=== PATIENT | female | born 1970 | race Caucasian/White ===

== ENCOUNTER → 2018-08-11 | Outpatient (REF) | payer BC ==
[2018-08-15 14:17] LABS: HPV HYBRID CAPTURE II Negative (Negative)
== END ==
LOC: M LAB REF 16:04
PROVIDERS: ATTEND Family Medicine
DX: Z12.4 Encounter for screening for malignant neoplasm of cervix (principal); Z11.51 Encounter for screening for human papillomavirus (HPV); R87.610 Atypical squamous cells of undetermined significance on cytologic smear of cervix (ASC-US)
CPT/HCPCS: 87624; G0123

== ENCOUNTER 2018-09-11 10:10 | Day surgery (SDC) | payer BC ==
[~2018-09-11] VITALS: Ht 165.1 cm; Wt 67.6 kg
[~2018-09-11 10:10] MED LIST: BLAC20TA PO; CHASTE TREE; GLUC1CAP10 PO; LIDOCAINE 2% INJ 100 MG/5 ML SDV (FOR ANES.) As Ordered ONE; NS 1,000 ML IV ONE; PROPOFOL 200 MG/20 ML VIAL As Ordered ONE; [UNRECOGNIZED DRUG - CODE] PO
--- NOTE | 2018-09-11 11:38 | ROOR ---
Patient Name: Gayle Richey Procedure Date: 09/11/2018 11:20 AM Date of : 1970 Age: 48 Room: [facility] Gender: Female Note Status: Finalized Procedure: Colonoscopy Indications: Screening for colorectal malignant neoplasm Providers: Isaías Palma Jr, MD Referring MD: Sarika Mendes DO Requesting Provider: Medicines: Propofol per Anesthesia Complications: No immediate complications. Procedure: Pre-Anesthesia Assessment: - Prior to the procedure, a History and Physical was performed, and patient medications and allergies were reviewed. The patient is competent. The risks and benefits of the procedure and the sedation options and risks were discussed with the patient. All questions were answered and informed consent was obtained. Patient identification and proposed procedure were verified by the physician and the nurse in the pre-procedure area and in the procedure room. Mental Status Examination: alert and oriented. Airway Examination: normal oropharyngeal airway and neck mobility. Respiratory Examination: clear to auscultation. CV Examination: normal. ASA Grade Assessment: II - A patient with mild systemic disease. After reviewing the risks and benefits, the patient was deemed in satisfactory condition to undergo the procedure. The anesthesia plan was to use moderate sedation / analgesia (conscious sedation). Immediately prior to administration of medications, the patient was re-assessed for adequacy to receive sedatives. The heart rate, respiratory rate, oxygen saturations, blood pressure, adequacy of pulmonary ventilation, and response to care were monitored throughout the procedure. The physical status of the patient was re-assessed after the procedure. The Colonoscope was introduced through the anus and advanced to the cecum, identified by appendiceal orifice and ileocecal valve. The colonoscopy was performed without difficulty. The patient tolerated the procedure well. The quality of the bowel preparation was adequate. Findings: The rectum, recto-sigmoid colon, sigmoid colon, descending colon, ascending colon, cecum, appendiceal orifice and ileocecal valve appeared normal. A small polyp was found in the transverse colon. The polyp was removed with a cold snare. Resection and retrieval were complete. Impression: - The rectum, recto-sigmoid colon, sigmoid colon, descending colon, ascending colon, cecum, appendiceal orifice and ileocecal valve are normal. - One small polyp in the transverse colon, removed with a cold snare. Resected and retrieved. Recommendation: - Repeat colonoscopy in 5-10 years for surveillance based on pathology results. Isaías Palma MD Isaías Palma Jr, MD 09/11/2018 11:38:30 AM This report has been signed electronically. Number of Addenda: 0 Note Initiated On: 09/11/2018 11:20 AM Estimated Blood Loss: Estimated blood loss: none.
[2018-09-11 12:00] VITALS: BP 117/71
== END 2018-09-11 12:10 | disposition home or self-care (01) ==
LOC: M OPP 10:10
PROVIDERS: ATTEND Surgery
DX: Z12.11 Encounter for screening for malignant neoplasm of colon (principal); D12.3 Benign neoplasm of transverse colon; Z91.048 Other nonmedicinal substance allergy status

== ENCOUNTER 2023-09-26 09:40 | Day surgery (SDC) | payer BC ==
[~2023-09-26] VITALS: Ht 165.1 cm; Wt 68.3 kg
[~2023-09-26 09:40] MED LIST changes: +CATALYN PO; +IBUP1TAB7 PO; -LIDOCAINE 2% INJ 100 MG/5 ML SDV (FOR ANES.) As Ordered ONE; -NS 1,000 ML IV ONE; -PROPOFOL 200 MG/20 ML VIAL As Ordered ONE; +RA B200C PO
[2023-09-26] MEDS: NS 1,000 ML IV ONE (11:17)
[2023-09-26] MEDS ORDERED: propofoL 200 MG/20 ML VIAL As Ordered ONE (12:08)
[2023-09-26] MEDS ORDERED: GLYCOPYRROLATE INJ 0.2 MG/ML 2 ML VIAL As Ordered ONE (12:31)
[2023-09-26 12:37] VITALS: TEMP 97
[2023-09-26 12:54] VITALS: BP 100/57; O2SAT 96
== END 2023-09-26 13:12 | disposition home or self-care (01) ==
LOC: M OPP 09:40
PROVIDERS: ATTEND Surgery
DX: Z12.11 Encounter for screening for malignant neoplasm of colon (principal); Z86.010 Personal history of colon polyps; Z87.891 Personal history of nicotine dependence; Z91.048 Other nonmedicinal substance allergy status